=== PATIENT | male | born 1965 | race Caucasian/White ===

== ENCOUNTER 2018-06-09 11:01 | Emergency (ER) | payer OTHER ==
[2018-06-09 11:14] LABS: BASOPHIL (%) 0.8 % (0-1); BASOPHIL COUNT 0.1 K/uL (0-0.1); EOSINOPHIL (%) 0.1 % (0-5); HEMATOCRIT 44.6 % (38.0-50.0); HEMOGLOBIN 15.6 G/DL (12.5-16.6); IMMATURE GRANULOCYTE (%) 1.7 % (0.0-0.7); LYMPHOCYTE (%) 15.3 % (15-42); LYMPHOCYTE COUNT 1.5 K/uL (1.0-2.8); MCV 91.4 FL (86-99); MONOCYTE (%) 5.6 % (3-12); MONOCYTE COUNT 0.6 K/uL (0-0.8); NEUTROPHIL (%) 76.5 % (45-76); NEUTROPHIL COUNT 7.5 K/uL (1.8-6.4); PLATELET COUNT 224 K/uL (156-360); RBC DIS.WIDTH-CV 11.6 % (11.8-14.6); RBC DIS.WIDTH-SD 38.8 % (39-53); RED BLOOD COUNT 4.88 M/uL (4.00-5.50); WHITE BLOOD COUNT 9.8 K/uL (4.1-10.2)
[2018-06-09 11:27] LABS: AMYLASE 69 IU/L (1-118); CHLORIDE 109 mEq/L (99-109); POTASSIUM 4.2 mEq/L (3.7-5.4); SODIUM 140 mEq/L (136-147)
[2018-06-09 11:29] LABS: GLUCOSE 107 mg/dL (70-99)
[2018-06-09 11:32] LABS: SERUM ETHYL ALCOHOL < 10 mg/dL
[2018-06-09 11:33] LABS: CREATININE 1.2 mg/dL (0.6-1.3)
[2018-06-09 11:34] LABS: UREA NITROGEN (BUN) 19 mg/dL (9-23)
[2018-06-09 11:36] LABS: LIPASE 13 U/L (1.0-51.0)
[2018-06-09 11:37] LABS: GFR ESTIMATE (CALCULATED) > 59 mL/min/ (58.99-99999)
[2018-06-09] MEDS ORDERED: PERCOCET 5/31 TABLET PO (12:31)
[2018-06-09] MEDS ORDERED: MIRALAX255 GM PO (12:32)
== END 2018-06-09 13:06 | disposition home or self-care (01) ==
LOC: TRA 11:01
PROVIDERS: Emergency Medicine
DX: S32.010A Wedge compression fracture of first lumbar vertebra, initial encounter for closed fracture (principal); M25.572 Pain in left ankle and joints of left foot; W13.2XXA Fall from, out of or through roof, initial encounter; K21.9 Gastro-esophageal reflux disease without esophagitis
CPT/HCPCS: 72131; 72170; 73610; 73630; 73650; 80048; 81003; 82150; 83690; 85025; 86850; 86900; 86901; 99281; 99285; G0480